=== PATIENT | female | born 1935 | race Caucasian/White ===

== ENCOUNTER 2021-03-09 12:11 | Inpatient (IN) | payer MEDICARE ==
[2021-03-09 13:29] VITALS: BMI 19.8
[2021-03-09] MEDS ORDERED: FLU VACC QS2021-22(65YR UP)/PF 240 MCG/0.7 ML SYRINGE IM ONE (13:45)
[2021-03-09] MEDS ORDERED: hydrALAZINE 20 MG/ML VIAL SLOW IVP PRN (13:53)
[2021-03-09] MEDS ORDERED: Labetalol HCl 100 MG/20 ML VIAL SLOW IVP PRN (13:53)
[2021-03-09] MEDS ORDERED: Acetaminophen 650 MG Suppository PR PRN (13:53)
[2021-03-09 15:01] LABS: Syphilis Antibody Nonreactive (Nonreactive); Syphilis Antibody Index 0.08 S/CO (<1.00 Non-Reactive)
[2021-03-09] MEDS: cefTRIAXone\\ROCEPHIN 1 GM in Sodium Chloride 0.9% 100 ML IVPB SCH (15:58)
[2021-03-09] MEDS: Acetaminophen 325 MG TAB PO PRN ×2 (18:38→23:45)
[2021-03-10] MEDS ORDERED: Sodium Chloride 0.9% 500 ML IV SCH ×2 (00:45→19:00)
[2021-03-10 05:41] LABS: #Monocytes 0.5 10x3/uL (0.0-1.1); #Neutrophils 4.9 10x3/uL (1.5-8.4); %Basophils 0.6 % (0.0-2.0); %Eosinophils 0.3 % (0.0-6.0); %Lymphocytes 14.4 % (18.0-47.0); %Monocytes 8.4 % (0.0-10.0); Hemoglobin 10.6 g/dL (12.0-15.5); Mean Corpuscular Hemoglobin 30.2 pg (27.0-33.0); Mean Corpuscular Volume 94.3 fl (81.6-98.3); Mean Platelet Volume 10.2 fl (7.4-10.4); Platelet Count 205 10x3/uL (150-450); RBC Distribution Width 13.1 % (11.5-14.5); Red Blood Cell (RBC) Count 3.51 10x6/uL (3.90-5.03); White Blood Cell (WBC) Count 6.4 10x3/uL (3.5-10.5)
[2021-03-10 05:51] LABS: Anion Gap 15 mmol/L (10-20); BUN (Urea Nitrogen) 28 mg/dL (9.8-20.1); Calc. Creatinine Clearance 27 mL/min (70-130); Calcium 8.8 mg/dL (7.8-10.44); Carbon Dioxide 17 mmol/L (23-31); Cardiac Risk 3.2 (Less than 4.5); Chloride 115 mmol/L (98-107); Cholesterol 146 mg/dl (< 200 Desired); Glucose 95 mg/dL (83-110); HDL Cholesterol 46 mg/dL (>60 Neg Risk); LDL Cholesterol, Calculated 80 mg/dL; Potassium 4.2 mmol/L (3.5-5.1); Sodium 143 mmol/L (136-145); Triglycerides 100 mg/dL (Less than 150)
[2021-03-10] MEDS: Rosuvastatin 10 MG TAB PO SCH (09:15)
[2021-03-10] MEDS: Donepezil HCl 5 MG TAB PO SCH (09:15)
[2021-03-10] MEDS: Aspirin 325 mg Enteric Coated Tablet PO SCH (09:15)
[2021-03-10 12:06] LABS: Hemoglobin 10.8 g/dL (12.0-15.5)
[2021-03-10] MEDS: Acetaminophen 325 MG TAB PO PRN (12:33)
[2021-03-10] MEDS: cefTRIAXone\\ROCEPHIN 1 GM in Sodium Chloride 0.9% 100 ML IVPB SCH (15:50)
[2021-03-10 18:08] LABS: Hemoglobin 10.5 g/dL (12.0-15.5)
[2021-03-10] MEDS ORDERED: Sodium Chloride 0.9% 1,000 ML IV SCH (19:15)
[2021-03-10 20:21] LABS: SARS-CoV-2 PCR by NAA Not Detected (NotDetected)
[2021-03-11 04:33] LABS: #Eosinphils 0.1 10x3/uL (0.0-0.5); #Monocytes 0.6 10x3/uL (0.0-1.1); #Neutrophils 5.8 10x3/uL (1.5-8.4); %Basophils 0.5 % (0.0-2.0); %Eosinophils 0.7 % (0.0-6.0); %Lymphocytes 14.2 % (18.0-47.0); %Monocytes 7.4 % (0.0-10.0); %Neutrophils 76.8 % (40.0-75.0); Hemoglobin 10.8 g/dL (12.0-15.5); Mean Corpuscular HGB CONC 31.5 g/dL (32.0-36.0); Mean Corpuscular Hemoglobin 29.9 pg (27.0-33.0); Mean Platelet Volume 10.1 fl (7.4-10.4); Platelet Count 189 10x3/uL (150-450); RBC Distribution Width 12.8 % (11.5-14.5); Red Blood Cell (RBC) Count 3.61 10x6/uL (3.90-5.03); White Blood Cell (WBC) Count 7.5 10x3/uL (3.5-10.5)
[2021-03-11 04:38] LABS: Anion Gap 15 mmol/L (10-20); BUN (Urea Nitrogen) 22 mg/dL (9.8-20.1); Calc. Creatinine Clearance 33 mL/min (70-130); Calcium 8.5 mg/dL (7.8-10.44); Carbon Dioxide 15 mmol/L (23-31); Chloride 114 mmol/L (98-107); Glucose 77 mg/dL (83-110); Potassium 4.1 mmol/L (3.5-5.1); Sodium 140 mmol/L (136-145)
[2021-03-11] MEDS: Donepezil HCl 5 MG TAB PO SCH (08:33)
[2021-03-11] MEDS: Rosuvastatin 10 MG TAB PO SCH (08:33)
[2021-03-11] MEDS: Aspirin 325 mg Enteric Coated Tablet PO SCH (08:33)
[2021-03-11] MEDS: Acetaminophen 325 MG TAB PO PRN (12:09)
[2021-03-11 12:46] VITALS: BP 148/64; TEMP 98.4
[2021-03-11] MEDS: cefTRIAXone\\ROCEPHIN 1 GM in Sodium Chloride 0.9% 100 ML IVPB SCH (15:14)
[2021-03-11 15:16] LABS: Hemoglobin A1c 5.3 % (4.0-6.0)
== END 2021-03-11 17:10 | disposition home or self-care (01) | DRG 64 ==
LOC: CSHTELE 12:11 → OBSVTOIN 17:43
PROVIDERS: ADMIT Internal Medicine; ATTEND Internal Medicine
DX: I63.533 Cerebral infarction due to unspecified occlusion or stenosis of bilateral posterior cerebral arteries (principal); G93.41 Metabolic encephalopathy; N39.0 Urinary tract infection, site not specified; F03.91 Unspecified dementia, unspecified severity, with behavioral disturbance; F05 Delirium due to known physiological condition; G81.91 Hemiplegia, unspecified affecting right dominant side; E78.5 Hyperlipidemia, unspecified; Z20.822 Contact with and (suspected) exposure to COVID-19; I10 Essential (primary) hypertension; Z88.0 Allergy status to penicillin
CPT/HCPCS: 36415; 70551; 80048; 80061; 83036; 84443; 85025; 86140; 86780; 93306; 93880; 96374; G0378; J0696; J3490; J7030; J7050; U0003; U0005